=== PATIENT | female | born 1960 | race Caucasian/White ===

== ENCOUNTER 2017-07-14 09:31 | Emergency (ER) | payer MEDICARE ==
[2017-07-14 09:43] VITALS: BP 134/81
--- NOTE | 2017-07-14 09:53 | UC ---
Ear Complaint HPI - HPI Summary HPI Summary: left ear pain x 4 days + swelling and redness outside of left ear, no fever, no chills, no cold sx, hearing is okay - History of Current Complaint Chief Complaint: UCEar Stated Complaint: LEFT EAR PAIN Time Seen by Provider: 07/14/17 09:39 Hx Obtained From: Patient Hx Last Menstrual Period: n/a Onset/Duration: Gradual Onset, Lasting Days - 4, Still Present Severity Initially: Moderate Severity Currently: Moderate Aggravating Factors: Nothing Alleviating Factors: Nothing Associated Signs/Symptoms: Positive: Swelling @. Negative: Discharge, Hearing Loss, Foreign Body Sensation, Trauma to Ear, URI Symptoms - Allergies/Home Medications Allergies/Adverse Reactions: Allergies Allergy/AdvReac Type Severity Reaction Status Date / Time Cortisone Allergy Severe Swelling Verified 07/14/17 09:43 Home Medications: Home Medications Cyclobenzaprine TAB* [Flexeril 10 MG TAB*] 10 mg PO DAILY 07/14/17 [History Confirmed 07/14/17] Losartan TAB* [Cozaar TAB*] 100 mg PO DAILY 07/14/17 [History Confirmed 07/14/17 ] PMH/Surg Hx/FS Hx/Imm Hx Previously Healthy: Yes Cardiovascular History: Hypertension Respiratory History: Asthma Other History Of: Negative For: HIV, Hepatitis B, Hepatitis C, Anticoagulant Therapy - Surgical History Surgical History: Yes Surgery Procedure, Year, and Place: Thoracic and Lumbar Laminectomies, 2002; Left Knee Arthroscopy, 1991 - Family History Known Family History: Positive: Unknown, Cardiac Disease Negative: Hypertension, Diabetes - Social History Alcohol Use: None Substance Use Type: Marijuana Substance Use Comment - Amount & Last Used: 3 times a day Smoking Status (MU): Light Every Day Tobacco Smoker Type: Cigarettes Amount Used/How Often: 3 cigarettes daily Length of Time of Smoking/Using Tobacco: 45 Years Have You Smoked in the Last Year: No Household Exposure Type: Cigarettes - Immunization History Most Recent Influenza Vaccination: no 2017 Review of Systems Constitutional: Negative Skin: Negative Eyes: Negative ENT: Ear Ache Respiratory: Negative Cardiovascular: Negative Is Patient Immunocompromised?: No All Other Systems Reviewed And Are Negative: Yes Physical Exam Triage Information Reviewed: Yes Appearance: Well-Appearing, No Pain Distress, Well-Nourished Vital Signs: Initial Vital Signs Temp 98.2 F 07/14/17 09:35 Pulse 84 07/14/17 09:35 Resp 16 07/14/17 09:35 BP 134/81 07/14/17 09:35 Pulse Ox 100 07/14/17 09:35 Eye Exam: Normal Eyes: Positive: Conjunctiva Clear ENT: Positive: Normal ENT inspection, Hearing grossly normal, Pharynx normal, TMs normal, Other: - left ear : + erythema, swelling and tenderness. Negative: TM bulging, TM dull, TM red Neck exam: Normal Neck: Positive: Supple, Nontender, No Lymphadenopathy Respiratory: Positive: Chest non-tender, Lungs clear, Normal breath sounds, No respiratory distress Cardiovascular: Positive: RRR, No Murmur, Pulses Normal Ear Complaint Course/Dx - Differential Dx/Diagnosis Provider Diagnoses: cellulitis left ear Discharge - Discharge Plan Condition: Stable Disposition: HOME Prescriptions: Amoxicillin/Clavulanate TAB* [Augmentin TAB 875*] 875 mg PO BID #20 tab Patient Education Materials: Cellulitis (ED), Earache (ED) Referrals: Salvador Urias DO [Primary Care Provider] - 7 Days
== END 2017-07-14 10:00 | disposition home or self-care (01) ==
LOC: UCCORT 09:31
DX: H60.12 Cellulitis of left external ear (principal); I10 Essential (primary) hypertension; F17.210 Nicotine dependence, cigarettes, uncomplicated
CPT/HCPCS: 99212; G0463

== ENCOUNTER 2017-10-31 10:30 | Emergency (ER) | payer MEDICARE ==
[2017-10-31 10:56] VITALS: BP 139/63
--- NOTE | 2017-10-31 11:05 | UC ---
Hand/Wrist HPI - HPI Summary HPI Summary: left wrist pain x 1 day , woke up this morning with left wrist pain and swelling no injury , hx of left wrist fracture - History Of Current Complaint Chief Complaint: UCUpperExtremity Stated Complaint: LEFT WRIST COMPLAINT Time Seen by Provider: 10/31/17 10:38 Hx Obtained From: Patient Hx Last Menstrual Period: n/a Onset/Duration: Sudden Onset, Lasting Days - 1, Still Present Severity Initially: Moderate Severity Currently: Moderate Character Of Pain: Aching Aggravating Factor(s): Movement, Lifting, Flexion, Extension Alleviating Factor(s): Nothing Associated Signs And Symptoms: Positive: Swelling, Weakness. Negative: Redness , Bruising, Fever, Numbness/Tingling - Allergies/Home Medications Allergies/Adverse Reactions: Allergies Allergy/AdvReac Type Severity Reaction Status Date / Time Cortisone Allergy Severe Swelling Verified 10/31/17 10:52 PMH/Surg Hx/FS Hx/Imm Hx Cardiovascular History: Hypertension Respiratory History: Asthma Other History Of: Negative For: HIV, Hepatitis B, Hepatitis C, Anticoagulant Therapy - Surgical History Surgical History: Yes Surgery Procedure, Year, and Place: Thoracic and Lumbar Laminectomies, 2002; Left Knee Arthroscopy, 1991 - Family History Known Family History: Positive: Unknown, Cardiac Disease Negative: Hypertension, Diabetes - Social History Alcohol Use: None Substance Use Type: Marijuana, Prescribed Substance Use Comment - Amount & Last Used: 3 times a day Smoking Status (MU): Light Every Day Tobacco Smoker Type: Cigarettes Amount Used/How Often: ~1/4 PPD Length of Time of Smoking/Using Tobacco: Since Age 10 Have You Smoked in the Last Year: No Household Exposure Type: Cigarettes - Immunization History Most Recent Influenza Vaccination: Not the Season Review of Systems Constitutional: Negative Skin: Negative Eyes: Negative ENT: Negative Respiratory: Negative Cardiovascular: Negative Gastrointestinal: Negative Is Patient Immunocompromised?: No All Other Systems Reviewed And Are Negative: Yes Physical Exam Triage Information Reviewed: Yes Appearance: Well-Appearing, No Pain Distress, Well-Nourished Vital Signs: Initial Vital Signs Temp 99.1 F 10/31/17 10:49 Pulse 70 10/31/17 10:49 Resp 16 10/31/17 10:49 BP 139/63 10/31/17 10:49 Pulse Ox 100 10/31/17 10:49 Vital Signs Reviewed: Yes Eyes: Positive: Conjunctiva Clear ENT: Positive: Normal ENT inspection, Hearing grossly normal, Pharynx normal Neck: Positive: Supple, Nontender, No Lymphadenopathy Respiratory: Positive: Chest non-tender, Lungs clear, Normal breath sounds, No respiratory distress Cardiovascular: Positive: RRR, No Murmur, Pulses Normal Musculoskeletal: Positive: Other: - left wrist : + swelling , no erythema, + tenderness distal wrist pain with flexion and extension , limited strength Diagnostics - Laboratory Diagnostic Studies Completed/Ordered: xray left wrist : IMPRESSION: SMALL OSSICLE ALONG THE ULNAR STYLOID PROCESS WHICH MAY REFLECT A REMOTE FRACTURE VERSUS. UNUNITED APOPHYSIS. MILD OSTEOARTHRITIS. NO ACUTE OSSEOUS INJURY. IF SYMPTOMS PERSIST,. RECOMMEND REPEAT IMAGING. Hand/Wrist Course/Dx - Differential Dx/Diagnosis Provider Diagnoses: left wrist strain Discharge - Discharge Plan Condition: Stable Disposition: HOME Patient Education Materials: Wrist Injury (ED) Referrals: Salvador Urias DO [Primary Care Provider] - 7 Days Additional Instructions: normal xray
--- NOTE | 2017-10-31 11:20 | RAD ---
HISTORY: Left wrist pain COMPARISONS: None VIEWS: 3, Frontal, lateral, and oblique views of the left wrist FINDINGS: BONE DENSITY: Normal. BONES: There is no acute displaced fracture. There is a small ossicle of the styloid process of the ulna. JOINTS: There is mild osteoarthritis of the first CMC joint. ALIGNMENT: There is no dislocation. SOFT TISSUES: Unremarkable. OTHER FINDINGS: None. IMPRESSION: SMALL OSSICLE ALONG THE ULNAR STYLOID PROCESS WHICH MAY REFLECT A REMOTE FRACTURE VERSUS UNUNITED APOPHYSIS. MILD OSTEOARTHRITIS. NO ACUTE OSSEOUS INJURY. IF SYMPTOMS PERSIST, RECOMMEND REPEAT IMAGING.
== END 2017-10-31 11:30 | disposition home or self-care (01) ==
LOC: UCCORT 10:30
DX: S66.912A Strain of unspecified muscle, fascia and tendon at wrist and hand level, left hand, initial encounter (principal); I10 Essential (primary) hypertension; Z88.8 Allergy status to other drugs, medicaments and biological substances; F17.210 Nicotine dependence, cigarettes, uncomplicated; M19.032 Primary osteoarthritis, left wrist; X58.XXXA Exposure to other specified factors, initial encounter; Y92.9 Unspecified place or not applicable
CPT/HCPCS: 99212; G0463

== ENCOUNTER 2018-03-09 10:45 | Emergency (ER) | payer MEDICARE ==
[2018-03-09 11:35] VITALS: BP 186/86
--- NOTE | 2018-03-09 11:50 | UC ---
UC General HPI - HPI Summary HPI Summary: found tick on L leg and removed it. states there for 2 days at the least. denies fever, rash. - History of Current Complaint Chief Complaint: UCBiteInjury Stated Complaint: SKIN COMPLAINT TICK LEFT LEG Time Seen by Provider: 03/09/18 11:44 Hx Obtained From: Patient Hx Last Menstrual Period: n/a Pain Intensity: 0 Aggravating: nothing Alleviating: nothing Associated Signs & Symptoms: Negative: Fever, Weakness - Allergy/Home Medications Allergies/Adverse Reactions: Allergies Allergy/AdvReac Type Severity Reaction Status Date / Time cortisone Allergy Swelling Verified 03/09/18 11:32 PMH/Surg Hx/FS Hx/Imm Hx - Additional Past Medical History Additional PMH: arthritis Cardiovascular History: Hypertension Other History Of: Negative For: HIV, Hepatitis B, Hepatitis C, Anticoagulant Therapy - Surgical History Surgical History: Yes Surgery Procedure, Year, and Place: Thoracic and Lumbar Laminectomies, 2002; Left Knee Arthroscopy, 1991 - Family History Known Family History: Positive: Unknown, Cardiac Disease Negative: Hypertension, Diabetes - Social History Lives: With Family Alcohol Use: None Substance Use Type: Marijuana, Prescribed Substance Use Comment - Amount & Last Used: 3 times a day Smoking Status (MU): Light Every Day Tobacco Smoker Type: Cigarettes Amount Used/How Often: ~1/4 PPD Length of Time of Smoking/Using Tobacco: Since Age 10 Have You Smoked in the Last Year: No Household Exposure Type: Cigarettes - Immunization History Most Recent Influenza Vaccination: Not the 2016/2017 Season Vaccination Up to Date: Yes Review of Systems Constitutional: Negative Skin: Negative Eyes: Negative ENT: Negative Respiratory: Negative Cardiovascular: Negative Gastrointestinal: Negative Genitourinary: Negative Motor: Negative Neurovascular: Negative Musculoskeletal: Arthralgia - from arthritis-no acute changes Neurological: Negative Psychological: Negative Is Patient Immunocompromised?: No All Other Systems Reviewed And Are Negative: Yes Physical Exam Triage Information Reviewed: Yes Appearance: Well-Appearing Vital Signs: Initial Vital Signs Temp 98 F 03/09/18 11:28 Pulse 66 03/09/18 11:28 Resp 16 03/09/18 11:28 BP 186/86 03/09/18 11:28 Pulse Ox 99 03/09/18 11:28 Eyes: Positive: Conjunctiva Clear ENT: Positive: Normal ENT inspection Neck: Positive: Supple, Nontender, No Lymphadenopathy Respiratory: Positive: Lungs clear, Normal breath sounds Cardiovascular: Positive: RRR, No Murmur Abdomen Description: Positive: Nontender, No Organomegaly, Soft Bowel Sounds: Positive: Present Musculoskeletal: Positive: ROM Intact Neurological: Positive: Alert Psychological: Positive: Age Appropriate Behavior Skin Exam: Normal, Other - abrasion L leg at tick removal site. no rash. Course/Dx - Course Course Of Treatment: pt states very anxious about this bite. admits to hx htn and took meds this am. states good control of her BP. states current bP from stress of being bitten by this tick. - Differential Dx - Multi-Symptom Provider Diagnoses: Tick bite L leg Discharge - Sign-Out/Discharge Documenting (check all that apply): Discharge/Admit/Transfer - Discharge Plan Condition: Stable Disposition: HOME Prescriptions: DOXYcycline CAP(*) [DOXYcycline 100MG CAP(*)] 200 mg PO DAILY #2 cap Patient Education Materials: Tick Bite (ED) Referrals: Salvador Urias DO [Primary Care Provider] - If Needed - Billing Disposition and Condition Condition: STABLE Disposition: HOME
== END 2018-03-09 11:57 | disposition home or self-care (01) ==
LOC: UCCORT 10:45
DX: S80.862A Insect bite (nonvenomous), left lower leg, initial encounter (principal); W57.XXXA Bitten or stung by nonvenomous insect and other nonvenomous arthropods, initial encounter; Y92.9 Unspecified place or not applicable; M19.90 Unspecified osteoarthritis, unspecified site; I10 Essential (primary) hypertension; F12.90 Cannabis use, unspecified, uncomplicated; F17.210 Nicotine dependence, cigarettes, uncomplicated
CPT/HCPCS: 99212; G0463

== ENCOUNTER 2018-05-04 08:39 | Emergency (ER) | payer MEDICARE ==
[2018-05-04 08:57] VITALS: BP 194/103
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
--- NOTE | 2018-05-04 09:29 | RAD ---
HISTORY: INJURY TO RIGHT SIDE / COMPARISONS: None VIEWS: 6, Frontal view of the chest with frontal and oblique views of the right hemithorax. FINDINGS: There is no displaced rib fracture or pneumothorax. The visualized lungs are clear. IMPRESSION: NO DISPLACED RIB FRACTURE OR PNEUMOTHORAX.
== END 2018-05-04 09:48 | disposition home or self-care (01) ==
LOC: UCCORT 08:39
DX: S20.20XD Contusion of thorax, unspecified, subsequent encounter (principal); Y04.2XXD Assault by strike against or bumped into by another person, subsequent encounter; R09.1 Pleurisy; I10 Essential (primary) hypertension; Z87.891 Personal history of nicotine dependence; Z88.8 Allergy status to other drugs, medicaments and biological substances
CPT/HCPCS: 99212; G0463

== ENCOUNTER 2018-06-17 08:07 | Emergency (ER) | payer MEDICARE ==
[2018-06-17 08:26] VITALS: BP 190/83
--- NOTE | 2018-06-17 08:44 | UC ---
Throat Pain/Nasal Bi HPI - HPI Summary HPI Summary: 58-year-old female presents with 1 day of right-sided sore throat, right ear pain and right jaw pain. With also productive secretions. She denies any fevers but has had difficulty swallowing due to pain. She did have difficulty drinking her coffee this morning secondary to pain. She denies any dental pain. She does have right-sided ear pressure and popping. No discharge from the ears. No loss of hearing. - History of Current Complaint Chief Complaint: UCRespiratory Stated Complaint: ST/EAR ACHE Time Seen by Provider: 06/17/18 08:36 Hx Obtained From: Patient Hx Last Menstrual Period: n/a Onset/Duration: Gradual Onset Pain Intensity: 10 - Allergies/Home Medications Allergies/Adverse Reactions: Allergies Allergy/AdvReac Type Severity Reaction Status Date / Time cortisone Allergy Swelling Verified 06/17/18 08:19 Home Medications: Home Medications Albuterol HFA INHALER* [Ventolin HFA Inhaler*] 1 - 2 puff INH Q4H PRN 06/17/18 [ History Confirmed 06/17/18] PMH/Surg Hx/FS Hx/Imm Hx Previously Healthy: Yes Cardiovascular History: Hypertension Other History Of: Negative For: HIV, Hepatitis B, Hepatitis C, Anticoagulant Therapy - Surgical History Surgical History: Yes Surgery Procedure, Year, and Place: Thoracic and Lumbar Laminectomies, 2002; Left Knee Arthroscopy, 1991 - Family History Known Family History: Positive: Unknown, Cardiac Disease Negative: Hypertension, Diabetes - Social History Occupation: Retired Lives: With Family Alcohol Use: None Substance Use Type: Marijuana, Prescribed Substance Use Comment - Amount & Last Used: 3 times a day Smoking Status (MU): Light Every Day Tobacco Smoker Type: Cigarettes Amount Used/How Often: ~1/4 PPD Length of Time of Smoking/Using Tobacco: Since Age 10 Have You Smoked in the Last Year: No Household Exposure Type: Cigarettes Cessation Counseling: Patient Advised to Stop - Immunization History Most Recent Influenza Vaccination: Not the 2016/2017 Season Vaccination Up to Date: Yes Review of Systems ENT: Sore Throat, Ear Ache, Nasal Discharge Is Patient Immunocompromised?: No All Other Systems Reviewed And Are Negative: Yes Physical Exam Triage Information Reviewed: Yes Appearance: Well-Appearing, Ill-Appearing, Pain Distress - mild Vital Signs: Initial Vital Signs Temp 99.5 F 06/17/18 08:21 Pulse 88 06/17/18 08:21 Resp 16 06/17/18 08:21 BP 190/83 06/17/18 08:21 Pulse Ox 98 06/17/18 08:21 Vital Signs Reviewed: Yes Eye Exam: Normal ENT Exam: Normal ENT: Positive: Hearing grossly normal, Pharyngeal erythema, Nasal congestion, TM bulging, TM dull, TM red - Right-sided, Tonsillar swelling - Right-sided, Uvula midline. Negative: Tonsillar exudate, Trismus, Hoarse voice - Right-sided , Dental tenderness, Sinus tenderness Dental Exam: Normal Neck exam: Normal Neck: Positive: 1 Respiratory Exam: Normal Cardiovascular Exam: Normal Musculoskeletal Exam: Normal Neurological Exam: Normal Psychological Exam: Normal Skin Exam: Normal Throat Pain/Nasal Course/Dx - Course Course Of Treatment: Right-sided tonsillitis with a right-sided acute otitis media will advise to consider going to emergency room for potential evaluation. Patient declined this option at this time and desires to try oral therapy. We will start oral amoxicillin, Magic mouthwash and advised to return [facility]. She requested if she needs to go to any ear nose and throat doctor that she goes to Dr. Garcia and we will offer that information for her to call to make appointment. She is aware if her symptoms worsen to go directly to the emergency room and she complies and aware of any potential medical complications of not seeking attention sooner. Advised smoking cessation - Differential Dx/Diagnosis Differential Diagnosis/HQI/PQRI: Otitis Media, Peritonsillar Abscess, Pharyngitis, Tonsillitis Provider Diagnoses: Tonsillitis. Right AOM. Hypertension Discharge - Sign-Out/Discharge Documenting (check all that apply): Patient Departure All imaging exams completed and their final reports reviewed: No Studies - Discharge Plan Condition: Fair Disposition: HOME Prescriptions: Amoxicillin PO (*) [Amoxicillin 500 MG CAP*] 500 mg PO TID 10 Days #30 cap Magic Mouth Was-LEILANI/MAAL/LIDO* 5 ml SWISH SPIT QID 5 Days #100 ml Patient Education Materials: Tonsillitis (ED), Peritonsillar Abscess (ED), Hypertension (ED) Referrals: Salvador Urias DO [Primary Care Provider] - 1 Day (follow up with blood pressure ) Db Garcia MD [Medical Doctor] - 1 Day (ENT referral for tonsillitis / peritonsillar abscess ) - Billing Disposition and Condition Condition: FAIR Disposition: Home
== END 2018-06-17 08:54 | disposition home or self-care (01) ==
LOC: UCCORT 08:07
DX: J03.90 Acute tonsillitis, unspecified (principal); H66.91 Otitis media, unspecified, right ear; I10 Essential (primary) hypertension; F17.210 Nicotine dependence, cigarettes, uncomplicated
CPT/HCPCS: 99212; G0463

== ENCOUNTER 2018-11-17 09:55 | Emergency (ER) | payer MEDICARE ==
[2018-11-17 11:17] VITALS: BP 196/94
--- NOTE | 2018-11-17 11:34 | UC ---
UC General HPI - HPI Summary HPI Summary: per triage, c/o feeling sluggish,head congestion, productive cough with green secretions, body aches, sore throat, chills that started yesterday. Denies any fever. + hx asthma. No sob or wheezing. - History of Current Complaint Chief Complaint: UCRespiratory Stated Complaint: ST,COUGH Time Seen by Provider: 11/17/18 11:19 Hx Obtained From: Patient Hx Last Menstrual Period: n/a Timing: Constant Pain Intensity: 0 Associated Signs & Symptoms: Positive: Cough. Negative: Chest Pain, Diarrhea, SOB, Vomiting, Wheezing - Allergy/Home Medications Allergies/Adverse Reactions: Allergies Allergy/AdvReac Type Severity Reaction Status Date / Time cortisone Allergy Swelling Verified 11/17/18 11:11 PMH/Surg Hx/FS Hx/Imm Hx - Additional Past Medical History Additional PMH: chronic back and knee pain Cardiovascular History: Hypertension Respiratory History: Asthma Other History Of: Negative For: HIV, Hepatitis B, Hepatitis C, Anticoagulant Therapy - Surgical History Surgical History: Yes Surgery Procedure, Year, and Place: Thoracic and Lumbar Laminectomies, 2002; Left Knee Arthroscopy, 1991; BREAST BIOPSIES BILAT - Family History Known Family History: Positive: Unknown, Cardiac Disease Negative: Hypertension, Diabetes - Social History Alcohol Use: None Substance Use Type: Marijuana Substance Use Comment - Amount & Last Used: 3 times a day Smoking Status (MU): Light Every Day Tobacco Smoker Type: Cigarettes Amount Used/How Often: ~1/4 PPD Length of Time of Smoking/Using Tobacco: Since Age 10 Have You Smoked in the Last Year: No Household Exposure Type: Cigarettes - Immunization History Most Recent Influenza Vaccination: Not the Season Vaccination Up to Date: Yes Review of Systems All Other Systems Reviewed And Are Negative: Yes Constitutional: Positive: Chills, Fatigue Skin: Positive: Negative Eyes: Positive: Negative ENT: Positive: Sore Throat, Sinus Congestion Respiratory: Positive: Cough Cardiovascular: Positive: Negative Gastrointestinal: Positive: Negative Genitourinary: Positive: Negative Motor: Positive: Negative Neurovascular: Positive: Negative Musculoskeletal: Positive: Myalgia Neurological: Positive: Negative Psychological: Positive: Negative Physical Exam Triage Information Reviewed: Yes Appearance: Well-Appearing Vital Signs: Initial Vital Signs Temp 98.4 F 11/17/18 11:13 Pulse 81 11/17/18 11:13 Resp 16 11/17/18 11:13 BP 196/94 11/17/18 11:13 Pulse Ox 97 11/17/18 11:13 Vital Signs Reviewed: Yes Eyes: Positive: Conjunctiva Clear ENT: Positive: Pharyngeal erythema - deep, R>L, TMs normal, Uvula midline. Negative: Nasal drainage, Trismus, Muffled voice, Hoarse voice Neck: Positive: Supple, Nontender, Enlarged Nodes @ - peritonsilar Respiratory: Positive: Lungs clear, No respiratory distress, Decreased breath sounds - mild Cardiovascular: Positive: RRR, No Murmur Abdomen Description: Positive: Nontender, No Organomegaly, Soft Bowel Sounds: Positive: Present Musculoskeletal: Positive: ROM Intact Neurological: Positive: Alert Psychological: Positive: Age Appropriate Behavior Skin Exam: Normal Diagnostics - Laboratory Diagnostic Studies Completed/Ordered: rapid flu=negative. rapid strep=neg. Course/Dx - Differential Dx - Multi-Symptom Differential Diagnoses: Other - rapid strep and flu are negative; however, exam is c/w a pharyngeal cellulitis thus I am going to tx for a presumptive bacterial infection. No concern for abscess. - Diagnoses Provider Diagnosis: Cellulitis of pharynx, Asthma Discharge - Sign-Out/Discharge Documenting (check all that apply): Patient Departure All imaging exams completed and their final reports reviewed: No Studies - Discharge Plan Condition: Stable Disposition: HOME Prescriptions: Amoxicillin/Clavulanate TAB* [Augmentin TAB 875*] 875 mg PO BID 10 Days #20 tab Patient Education Materials: Pharyngitis (ED), Asthma (ED) Forms: *Work Release Referrals: Salvador Urias DO [Primary Care Provider] - 5 Days Additional Instructions: USE RESCUE INHALER 2 PUFFS EVERY 6 HOURS. - Billing Disposition and Condition Condition: STABLE Disposition: Home
[2018-11-17 11:36] LABS: Influenza A Molecular NEGATIVE (Negative); Influenza B Molecular NEGATIVE (Negative)
== END 2018-11-17 11:57 | disposition home or self-care (01) ==
LOC: UCCORT 09:55
DX: J39.1 Other abscess of pharynx (principal); J45.909 Unspecified asthma, uncomplicated; I10 Essential (primary) hypertension; Z88.8 Allergy status to other drugs, medicaments and biological substances
CPT/HCPCS: 87070; 87651; 99212; G0463

== ENCOUNTER 2023-09-29 11:17 | Inpatient (IN) ==
[2023-09-29] MEDS ORDERED: Lactated Ringers 1000 ml BAG 1,000 ML IV ONE (11:48)
[2023-09-29 12:33] LABS: ABS Lymphocytes 0.7 10^3/uL (1.0-4.8); ABS Monocytes 1.2 10^3/uL (0.0-0.9); ABS Neutrophils 16.8 10^3/uL (1.5-7.6); ABS Nucleated RBC 0.01 10^3/ul; Hematocrit 39.4 % (35-45); Hemoglobin 13.4 g/dL (11.5-14.3); Lymphocyte % 3.6 %; Mean Corpuscular Hemoglobin 30.7 pg (27-33); Mean Corpuscular Hgb Conc 33.9 g/dL (31-36); Mean Corpuscular Volume 90.5 fL (80-97); Mean Platelet Volume 8.2 fL (7.5-11.2); Platelet Count 343 10^3/uL (150-450); Red Blood Count 4.35 10^6/uL (3.63-4.92); Red Cell Distribution Width 13.4 % (12-17); White Blood Count 18.8 10^3/uL (3.8-11.8)
[2023-09-29 12:50] LABS: Urine Appearance Cloudy; Urine Bilirubin Negative (Negative); Urine Blood Negative (Negative); Urine Color Yellow; Urine Glucose Negative (Negative); Urine Ketones Trace (Negative); Urine Nitrite Negative (Negative); Urine Protein Negative (Negative); Urine Specific Gravity 1.015 (1.002-1.030); Urine Urobilinogen Negative (Negative)
[2023-09-29 12:55] LABS: ALT 91 U/L (7-52); Albumin 3.3 g/dL (3.2-5.2); Albumin/Globulin Ratio 1.2 (1-3); Alkaline Phosphatase 66 U/L (35-149); Blood Urea Nitrogen 22 mg/dL (6-24); C Reactive Protein 98.73 mg/L (<8.01); CO2 Carbon Dioxide 24 mmol/L (22-32); Chloride 92 mmol/L (101-111); Creatinine, Serum 0.98 mg/dL (0.51-0.95); Globulin 2.8 g/dL (2-4); Glucose 101 mg/dL (70-100); Sodium 129 mmol/L (135-145); Total Bilirubin 0.7 mg/dL (0.2-1.0); Total Protein 6.1 g/dL (6.4-8.9); eGFR CKD-EPI 64.1 (>60)
[2023-09-29 12:56] LABS: Anion Gap 13 mmol/L (2-16)
[2023-09-29] MEDS ORDERED: Morphine 4 MG/ML VIAL (1 ml) IV ONE ×2 (13:01→15:13)
[2023-09-29] MEDS ORDERED: Piperacillin/Tazobac 3.375 BAG 3.375 GM/100 ML BAG IV ONE (13:01)
[2023-09-29] MEDS ORDERED: Iohexol 350 (CONTRAST) 500 ML MDV IV ONE (13:40)
[2023-09-29] MEDS ORDERED: NS 0.9% 1000 ml BAG 1,000 ML IV SCH (16:00)
[2023-09-29] MEDS ORDERED: Morphine 2 MG/ML SYRINGE IV PRN (16:27)
[2023-09-29] MEDS ORDERED: Acetaminophen IV 1 GM/100ML 710 MG/71 ML BAG IV ONE (16:39)
[2023-09-29] MEDS ORDERED: Albuterol 2.5mg/3 ml (0.083%) NEB.SOLN INH PRN (17:02)
[2023-09-29] MEDS ORDERED: Albuterol HFA INHALER 8 gm MDI INH PRN (17:02)
[2023-09-29] MEDS: cefTRIAXone 1 gm/50 mL D5W 1 GM/50 ML BAG IV SCH (17:26)
[2023-09-29] MEDS: metroNIDAZOLE IV 500 MG/100ML 500 MG/100 ML BAG IVPB SCH (17:26)
[2023-09-29] MEDS ORDERED: HYDROmorphone 1 MG/1 ML SYRINGE IV ONE (17:39)
[2023-09-29] MEDS ORDERED: Enoxaparin 40 MG/0.4 ML SYR SUBCUT ONE (17:53)
[2023-09-29 17:57] LABS: Lipase < 10 U/L (11.0-82.0)
[2023-09-29] MEDS: Ondansetron 4 mg VIAL 2 MG/ML 2 ml VIAL IV PRN (17:58)
[2023-09-29] MEDS ORDERED: KCL 20 MEQ/100 ML IVPREMIX 20 MEQ/100 ML BAG IV SCH (18:00)
[2023-09-29 19:56] LABS: Calcium 8.3 mg/dL (8.6-10.3); Creatinine, Serum 1.11 mg/dL (0.51-0.95); Potassium 3.3 mmol/L (3.5-5.0); eGFR CKD-EPI 55.2 (>60)
[2023-09-29] MEDS: KCL 20 MEQ/100 ML IVPREMIX 20 MEQ/100 ML BAG IV SCH (20:13)
[2023-09-29] MEDS: Acetaminophen IV 1 GM/100ML 1,000 MG/100 ML BAG IV SCH (22:43)
[2023-09-30] MEDS: KCL 20 MEQ/100 ML IVPREMIX 20 MEQ/100 ML BAG IV SCH ×2 (00:51→04:34)
[2023-09-30] MEDS: metroNIDAZOLE IV 500 MG/100ML 500 MG/100 ML BAG IVPB SCH ×4 (01:10→17:07)
[2023-09-30] MEDS: HYDROmorphone 1 MG/1 ML SYRINGE IV SLOW PU PRN ×5 (03:04→21:57)
[2023-09-30] MEDS: Acetaminophen IV 1 GM/100ML 1,000 MG/100 ML BAG IV SCH ×3 (05:38→21:58)
[2023-09-30 07:47] LABS: ABS Lymphocytes 0.8 10^3/uL (1.0-4.8); ABS Monocytes 1.3 10^3/uL (0.0-0.9); ABS Neutrophils 14.7 10^3/uL (1.5-7.6); Hematocrit 35.2 % (35-45); Lymphocyte % 4.7 %; Mean Corpuscular Hemoglobin 30.9 pg (27-33); Mean Corpuscular Hgb Conc 34.2 g/dL (31-36); Mean Corpuscular Volume 90.2 fL (80-97); Mean Platelet Volume 8.3 fL (7.5-11.2); Platelet Count 293 10^3/uL (150-450); Red Cell Distribution Width 12.9 % (12-17); White Blood Count 16.7 10^3/uL (3.8-11.8)
[2023-09-30 08:07] LABS: Albumin/Globulin Ratio 1.2 (1-3); C Reactive Protein 141.75 mg/L (<8.01); Calcium 8.1 mg/dL (8.6-10.3); Creatinine, Serum 1.06 mg/dL (0.51-0.95); Direct Bilirubin 0.1 mg/dL (0.03-0.18); Globulin 2.6 g/dL (2-4); Indirect Bilirubin 0.4 mg/dL (0.3-1.0); Magnesium 1.7 mg/dL (1.9-2.7); Phosphorus 2.7 mg/dL (2.5-5.0); Potassium 3.8 mmol/L (3.5-5.0); Total Bilirubin 0.5 mg/dL (0.2-1.0); Total Protein 5.6 g/dL (6.4-8.9); eGFR CKD-EPI 58.3 (>60)
[2023-09-30] MEDS ORDERED: Magnesium Sulfate 2 gm BAG 2 GM/50 ML BAG IVPB ONE (08:09)
[2023-09-30] MEDS: Ondansetron 4 mg VIAL 2 MG/ML 2 ml VIAL IV PRN (09:00)
[2023-09-30] MEDS: Lactated Ringers 1000 ml BAG 1,000 ML IV SCH (10:46)
[2023-09-30] MEDS: Pantoprazole VIAL 40 MG VIAL IV SCH (12:15)
[2023-09-30] MEDS: cefTRIAXone 1 gm/50 mL D5W 1 GM/50 ML BAG IV SCH (16:24)
[2023-10-01] MEDS: metroNIDAZOLE IV 500 MG/100ML 500 MG/100 ML BAG IVPB SCH ×3 (00:47→18:16)
[2023-10-01] MEDS: HYDROmorphone 1 MG/1 ML SYRINGE IV SLOW PU PRN ×5 (03:26→23:09)
[2023-10-01] MEDS: Acetaminophen IV 1 GM/100ML 1,000 MG/100 ML BAG IV SCH ×3 (04:55→22:50)
[2023-10-01 06:21] LABS: ABS Eosinophils 0.1 10^3/uL (0.0-0.5); ABS Lymphocytes 1.2 10^3/uL (1.0-4.8); ABS Monocytes 0.8 10^3/uL (0.0-0.9); ABS Neutrophils 8.3 10^3/uL (1.5-7.6); ABS Nucleated RBC 0.01 10^3/ul; Eosinophil % 0.6 %; Hemoglobin 10.6 g/dL (11.5-14.3); Lymphocyte % 11.6 %; Mean Corpuscular Hemoglobin 31.1 pg (27-33); Mean Corpuscular Hgb Conc 34.4 g/dL (31-36); Mean Corpuscular Volume 90.6 fL (80-97); Mean Platelet Volume 8.3 fL (7.5-11.2); Platelet Count 242 10^3/uL (150-450); Red Blood Count 3.42 10^6/uL (3.63-4.92); Red Cell Distribution Width 13.6 % (12-17); White Blood Count 10.4 10^3/uL (3.8-11.8)
[2023-10-01 06:39] LABS: Creatinine, Serum 0.87 mg/dL (0.51-0.95); Magnesium 1.9 mg/dL (1.9-2.7); eGFR CKD-EPI 73.9 (>60)
[2023-10-01] MEDS: Lactated Ringers 1000 ml BAG 1,000 ML IV SCH (07:35)
[2023-10-01] MEDS: Pantoprazole VIAL 40 MG VIAL IV SCH (09:54)
[2023-10-01] MEDS: KCL 20 MEQ/100 ML IVPREMIX 20 MEQ/100 ML BAG IV SCH ×2 (11:28→17:22)
[2023-10-01] MEDS ORDERED: Midazolam 10 mg/10 ml VIAL 1 mg/ml 10 ml VIAL (10 mg) ONE (14:30)
[2023-10-01] MEDS ORDERED: fentaNYL 100 mcg/2 ml 50 MCG/ML VIAL ONE (14:30)
[2023-10-01] MEDS: Potassium Chlor 10 meq TAB PO SCH (17:04)
[2023-10-01] MEDS: Pantoprazole 80 mg in NS BAG 80 MG/250 ML BAG IV SCH (17:08)
[2023-10-01] MEDS: cefTRIAXone 1 gm/50 mL D5W 1 GM/50 ML BAG IV SCH (17:23)
[2023-10-02] MEDS: metroNIDAZOLE IV 500 MG/100ML 500 MG/100 ML BAG IVPB SCH ×3 (01:25→17:02)
[2023-10-02] MEDS: HYDROmorphone 1 MG/1 ML SYRINGE IV SLOW PU PRN ×5 (04:22→21:23)
[2023-10-02] MEDS: Pantoprazole 80 mg in NS BAG 80 MG/250 ML BAG IV SCH ×2 (04:33→15:59)
[2023-10-02] MEDS: Acetaminophen IV 1 GM/100ML 1,000 MG/100 ML BAG IV SCH (06:05)
[2023-10-02 06:13] LABS: ABS Eosinophils 0.1 10^3/uL (0.0-0.5); ABS Lymphocytes 0.9 10^3/uL (1.0-4.8); ABS Monocytes 0.7 10^3/uL (0.0-0.9); ABS Neutrophils 5.5 10^3/uL (1.5-7.6); ABS Nucleated RBC 0.01 10^3/ul; Eosinophil % 0.7 %; Hematocrit 31.3 % (35-45); Hemoglobin 10.8 g/dL (11.5-14.3); Mean Corpuscular Hemoglobin 31.1 pg (27-33); Mean Corpuscular Hgb Conc 34.7 g/dL (31-36); Mean Corpuscular Volume 89.6 fL (80-97); Mean Platelet Volume 8.4 fL (7.5-11.2); Nucleated Red Blood Cells % 0.1 %/100WBC (0.0-0.8); Platelet Count 252 10^3/uL (150-450); Red Blood Count 3.49 10^6/uL (3.63-4.92); Red Cell Distribution Width 13.6 % (12-17); White Blood Count 7.1 10^3/uL (3.8-11.8)
[2023-10-02 06:33] LABS: Calcium 7.9 mg/dL (8.6-10.3); Creatinine, Serum 0.81 mg/dL (0.51-0.95); Magnesium 1.5 mg/dL (1.9-2.7); Potassium 2.8 mmol/L (3.5-5.0); eGFR CKD-EPI 80.5 (>60)
[2023-10-02] MEDS ORDERED: Magnesium Sulfate 2 gm BAG 2 GM/50 ML BAG IVPB ONE (07:48)
[2023-10-02] MEDS: Lactated Ringers 1000 ml BAG 1,000 ML IV SCH (08:25)
[2023-10-02] MEDS: Potassium Chlor 10 meq TAB PO SCH (08:30)
[2023-10-02] MEDS ORDERED: Potassium Chloride LIQUID 20 MEQ/15 ML LIQUID PO SCH (09:00)
[2023-10-02] MEDS ORDERED: Potassium Chlor 20 meq TAB.ER PO SCH (14:00)
[2023-10-02] MEDS ORDERED: Potassium Chlor 20 meq TAB.ER PO ONE (15:32)
[2023-10-02] MEDS ORDERED: Magnesium Sulfate IV 1GM/100ML 1 GM/100 ML BAG IV ONE (15:33)
[2023-10-02] MEDS: Potassium Chlor 20 meq TAB.ER PO SCH ×4 (16:00→17:06)
[2023-10-03] MEDS: HYDROmorphone 1 MG/1 ML SYRINGE IV SLOW PU PRN ×2 (01:39→05:51)
[2023-10-03] MEDS: metroNIDAZOLE IV 500 MG/100ML 500 MG/100 ML BAG IVPB SCH ×2 (01:53→10:55)
[2023-10-03] MEDS: Pantoprazole 80 mg in NS BAG 80 MG/250 ML BAG IV SCH ×3 (04:05→19:32)
[2023-10-03 07:05] LABS: ABS Eosinophils 0.1 10^3/uL (0.0-0.5); ABS Lymphocytes 0.9 10^3/uL (1.0-4.8); ABS Monocytes 0.6 10^3/uL (0.0-0.9); ABS Neutrophils 4.4 10^3/uL (1.5-7.6); Eosinophil % 0.9 %; Hemoglobin 10.5 g/dL (11.5-14.3); Lymphocyte % 14.4 %; Mean Corpuscular Hemoglobin 31.3 pg (27-33); Mean Corpuscular Hgb Conc 34.9 g/dL (31-36); Mean Corpuscular Volume 89.7 fL (80-97); Mean Platelet Volume 7.9 fL (7.5-11.2); Nucleated Red Blood Cells % 0.1 %/100WBC (0.0-0.8); Platelet Count 244 10^3/uL (150-450); Red Blood Count 3.35 10^6/uL (3.63-4.92); Red Cell Distribution Width 13.3 % (12-17)
[2023-10-03 07:20] LABS: Calcium 7.9 mg/dL (8.6-10.3); Creatinine, Serum 0.91 mg/dL (0.51-0.95); Magnesium 1.7 mg/dL (1.9-2.7); Phosphorus 2.1 mg/dL (2.5-5.0); Potassium 4.2 mmol/L (3.5-5.0)
[2023-10-03] MEDS ORDERED: Magnesium Sulfate 2 gm BAG 2 GM/50 ML BAG IVPB ONE (07:57)
[2023-10-03] MEDS ORDERED: oxyCODONE/Acetamin 5/325 mg TAB PO PRN (08:15)
[2023-10-03] MEDS ORDERED: HYDROmorphone 1 MG/1 ML SYRINGE IV SLOW PU PRN (10:57)
[2023-10-03] MEDS: oxyCODONE/Acetamin 5/325 mg TAB PO PRN ×2 (14:36→20:30)
[2023-10-03 14:56] LABS: HDL Cholesterol 23.9 mg/dL
[2023-10-04] MEDS: oxyCODONE/Acetamin 5/325 mg TAB PO PRN ×3 (02:33→15:43)
[2023-10-04 11:35] LABS: ABS Basophils 0.1 10^3/uL (0.0-0.1); ABS Lymphocytes 1.2 10^3/uL (1.0-4.8); ABS Neutrophils 8.6 10^3/uL (1.5-7.6); Eosinophil % 0.4 %; Hematocrit 34.1 % (35-45); Hemoglobin 11.6 g/dL (11.5-14.3); Mean Corpuscular Hemoglobin 30.7 pg (27-33); Mean Corpuscular Volume 90.2 fL (80-97); Mean Platelet Volume 7.9 fL (7.5-11.2); Platelet Count 313 10^3/uL (150-450); Red Blood Count 3.78 10^6/uL (3.63-4.92); Red Cell Distribution Width 13.7 % (12-17)
[2023-10-04 11:53] LABS: Calcium 8.2 mg/dL (8.6-10.3); Creatinine, Serum 0.93 mg/dL (0.51-0.95); Magnesium 1.6 mg/dL (1.9-2.7); Potassium 3.4 mmol/L (3.5-5.0); eGFR CKD-EPI 68.2 (>60)
[2023-10-04 14:31] VITALS: BP 177/90
== END 2023-10-04 16:00 | disposition home or self-care (01) | DRG 383 ==
LOC: EDHOLD 11:17 → ED 11:17 → EDHOLD 15:46 → INTOOBSV 15:46 → MED 18:11 → SUATTDRO 10-01 10:26
PROVIDERS: ADMIT Internal Medicine; ATTEND Student in an Organized Health Care Education/Training Program